=== PATIENT | male | born 1960 | race Caucasian/White ===

== ENCOUNTER 2018-06-17 12:19 | Inpatient (IN) | payer OTHER ==
[~2018-06-17] VITALS: Ht 167.6 cm; Wt 54.7 kg
--- NOTE | ~2018-06-17 | HC ---
[facility] [place] [address] CONSULTATION Name: MARY JANE NOGUERA Room #: 351-P [facility] IN M.R.#: [id number] Admission: 06/17/18 Attend Phys: Pablo Arboleda MD Discharge: Date of : 62 Report #: [id number] THIS REPORT FOR: //name// CC: [facility] physician/PCP Pablo Arboleda DATE OF SERVICE: 06/18/2018 HISTORY OF PRESENT ILLNESS: This 58-year-old white male was admitted through the Emergency Room with a 6+ month history of sore throat with hoarseness. This has ultimately led to difficulty swallowing and he states over the last 3 months, he has lost approximately 30 pounds. He was told to see his family physician when he was living in [place] after an ER visit, which he did not pursue. He recently has moved to [facility] [place]. He denies pain or other masses outside of his throat. He is a recently reformed cigarette smoker as well as alcohol drinker. ALLERGIES: None known. MEDICATIONS: Are as listed. FAMILY HISTORY: Negative for cancer of the larynx. SOCIAL HISTORY: He is currently unemployed and uninsured and living with his mother. He does continue to drink. PAST MEDICAL HISTORY: Negative prior to this current event. He "does not see physicians." REVIEW OF SYSTEMS: As in the history of present illness. His weight loss is primarily due to difficulty swallowing as opposed to lack of appetite. PHYSICAL EXAMINATION: GENERAL: Shows alert white male. He has a raspy hoarse voice. CHEST: Clear. ABDOMEN: Revealed no organomegaly or masses. CARDIOVASCULAR: Normal S1, S2. EXTREMITIES: No clubbing, cyanosis or edema. NEUROLOGIC: No focal localizing signs. PSYCHIATRIC: Not agitated or confused. LYMPHATICS: Show no palpable supraclavicular adenopathy. HOSPITAL COURSE: A CT scan was performed in the Emergency Room, which shows an [facility] [address] [place] [address] CONSULTATION Name: MARY JANE NOGUERA Room #: 351-P ADM IN R.#: [id number] Admission: 06/17/18 Attend Phys: Pablo Arboleda MD Discharge: Date of : 62 Report #: [id number] extensive right laryngeal mass with necrosis compatible with malignancy. 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 PLAN: ENT has been consulted and await biopsy for histologic confirmation and diagnosis. This appears to be an extensive lesion, but if local only, would be a consideration of radiation therapy in conjunction with systemic treatment. A CT scan of the abdomen and pelvis has been ordered with results pending in terms of staging. PET scan will also be performed if cancer diagnosis is confirmed. I have also recommended social service see him to pursue paperwork for Medicaid coverage. Thanks for allowing us to see him in consultation being allowed to participate in his care. By: [id number] Hetal Cross MD /nt
[2018-06-17 12:27] VITALS: BP 146/96
[2018-06-17 14:22] LABS: ABSOLUTE NEUTROPHILS 5.5 thou/uL (1.4-8.2); BASOPHILS 0.8 % (0.0-2.0); EOSINOPHILS 1.3 % (0.0-3.0); HEMATOCRIT 43.1 % (42.0-52.0); HEMOGLOBIN 14.8 gm/dL (14.0-18.0); LYMPHOCYTES 21.7 % (24.0-44.0); MCH 35.3 pg (26.0-34.0); MCHC 34.4 g/dL (28.0-37.0); MCV 102.6 fL (80.0-100.0); MONOCYTES 7.5 % (1.0-8.0); PLATELET COUNT 296 thou/uL (150-400); POLYS 68.7 % (36.0-66.0); RDW 13.2 % (10.5-14.5)
[2018-06-17 14:29] LABS: CALCIUM 9.7 mg/dL (8.5-10.1); CREATININE 0.8 mg/dL (0.7-1.3)
[2018-06-17 15:51] VITALS: BP 148/91
[2018-06-17 16:06] VITALS: BP 158/98
[2018-06-17 16:56] LABS: ALBUMIN 2.9 g/dL (3.4-5.0); DIRECT BILIRUBIN 0.1 mg/dL (<0.1-0.3); MAGNESIUM 1.4 mg/dL (1.8-2.4); TOTAL BILIRUBIN 0.4 mg/dL (<0.1-1.0); TOTAL PROTEIN 8.4 g/dL (6.4-8.2)
[2018-06-17 17:08] VITALS: BP 156/93
[2018-06-17 17:09] LABS: TSH 1.712 uIU/mL (0.358-3.740)
[2018-06-17 19:55] VITALS: BP 124/75
[2018-06-17 22:07] LABS: URINE BILIRUBIN NEGATIVE (Negative); URINE BLOOD NEGATIVE (Negative); URINE CLARITY CLEAR; URINE COLOR YELLOW; URINE GLUCOSE-RANDOM* 2+ (Negative); URINE KETONES NEGATIVE (Negative); URINE LEUKOCYTES-REFLEX NEGATIVE (Negative); URINE NITRITE-REFLEX NEGATIVE (Negative); URINE PROTEIN (DIPSTICK) NEGATIVE (Negative); URINE SPECIFIC GRAVITY <= 1.005 (1.005-1.035); URINE UROBILINOGEN 0.2 E.U./dl (0.2-1.0)
[2018-06-17 22:13] LABS: AMP/METHAMP Negative (Negative); BARBITURATES Negative (Negative); BENZODIAZEPINES Negative (Negative); COCAINE Negative (Negative); METHADONE Negative (Negative); OPIATES Negative (Negative); PCP Negative (Negative)
[2018-06-17 23:55] VITALS: BP 149/86
[2018-06-18 04:32] LABS: MAGNESIUM 1.8 mg/dL (1.8-2.4)
[2018-06-18 04:34] LABS: POTASSIUM 4.6 mmol/L (3.5-5.1)
[2018-06-18 04:36] LABS: CHOLESTEROL 118 mg/dL (<200); HDL CHOLESTEROL 54 mg/dL (>40); LDL CHOLESTEROL 55 mg/dL (<100); TC:HDL 2.2 Ratio (Not establshd); TRIGLYCERIDE 49 mg/dL (<150); VLDL 10 mg/dL (<40)
[2018-06-18 04:40] VITALS: BP 153/93
[2018-06-18 04:41] LABS: SERUM ASSESSMENT Clear
[2018-06-18 07:27] VITALS: BP 148/102
[2018-06-18 08:07] LABS: CALCIUM 9.2 mg/dL (8.5-10.1); CREATININE 0.7 mg/dL (0.7-1.3); POTASSIUM 4.6 mmol/L (3.5-5.1)
[2018-06-18 20:10] VITALS: BP 153/89
[2018-06-18 23:32] VITALS: BP 176/96
[2018-06-19] VITALS (9 sets, daily range): BP systolic 100–180; BP diastolic 70–108
[2018-06-19 00:10] LABS: GLYCOHEMOGLOBIN (HGB A1C) 5.8 % (4.8-5.6)
[2018-06-19 03:20] LABS: HCO3 26.6 mmol/L (22.0-26.0); PCO2 46.4 mmHg (35.0-45.0); PO2 68.6 mmHg (80.0-100.0); pH 7.377 (7.360-7.450); sO2 93.3 % (92.0-98.0)
[2018-06-19 05:29] LABS: HEMATOCRIT 40.7 % (42.0-52.0); HEMOGLOBIN 13.4 gm/dL (14.0-18.0); MCH 34.3 pg (26.0-34.0); MCV 103.8 fL (80.0-100.0); RBC 3.92 mil/uL (4.50-6.00); RDW 13.2 % (10.5-14.5); WBC 10.8 thou/uL (4.0-11.0)
[2018-06-19 05:38] LABS: CALCIUM 9.1 mg/dL (8.5-10.1); CREATININE 0.5 mg/dL (0.7-1.3); POTASSIUM 3.5 mmol/L (3.5-5.1)
--- NOTE | 2018-06-19 13:55 | HC ---
[facility] [place] [address] CONSULTATION Name: MARY JANE NOGUERA Room #: 351-P ADM IN M.R.#: [id number] Admission: 06/17/18 Attend Phys: Pablo Arboleda MD Discharge: Date of : 62 Report #: [id number] THIS REPORT FOR: //name// CC: [facility] physician/PCP Pablo Arboleda DATE OF SERVICE: 06/18/2018 REASON FOR CONSULTATION: Hoarseness. HISTORY OF PRESENT ILLNESS: The patient is a 58-year-old male who has a 2-year history of progressive hoarseness. He has been living in [place] over the last 7 years, lived in [place] previously. He has been calling family members on the phone and states that he went to try to be seen four times in [place], but was refused service because he had no insurance in the State [place]. Has family in town in [place] and 3 days ago, came from [place] back to [place], presented to the Emergency Room with increasing hoarseness. 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 I have been asked to evaluate him for his progressive hoarseness. PAST MEDICAL HISTORY: Significant for alcohol and tobacco abuse, been through DTs, probably 20 times by his admission. He is a previous smoker and has recently quit smoking. He denies any other past medical or surgical history. MEDICATIONS: None. ALLERGIES: None. REVIEW OF SYSTEMS: Significant for hoarseness. States that he does get somewhat short of breath if he walks a mile or two. PHYSICAL EXAMINATION: GENERAL: He is a well-developed male who is very hoarse. He has no dyspnea, no stridor, but does have a very weak vocal production. HEENT: Head is normocephalic, atraumatic. Pupils are equal, round and reactive. Nasal no active rhinorrhea. Oral cavity, no granulation or flushing seen. NECK: No palpable adenopathy. CT scan shows invasive neoplastic process with cartilage destruction. PLAN: He will need a direct laryngoscopy and biopsy for tissue diagnoses. Surgical options include laryngectomy, discussed this with Dr. Nicholson the [facility] [address] [address] CONSULTATION Name: MARY JANE NOGUERA Room #: 351-P ADM IN M.R.#: [id number] Admission: 06/17/18 Attend Phys: Pablo Arboleda MD Discharge: Date of : 62 Report #: [id number] nonsurgical nonlaryngectomy approach would be chemotherapy, radiation therapy combination. <ELECTRONICALLY SIGNED> By: John Christina MD 06/19/18 [id number] John Christina MD /nt
[2018-06-19 16:31] LABS: BE(vivo) 0.4 mmol/L (-2 to +3); HCO3 23.7 mmol/L (22.0-26.0); PCO2 34.2 mmHg (35.0-45.0); pH 7.458 (7.360-7.450); sO2 85.8 % (92.0-98.0)
[2018-06-19 16:33] LABS: PO2 47.4 mmHg (80.0-100.0)
[2018-06-20] VITALS (71 sets, daily range): BP systolic 79–139; BP diastolic 43–92
[2018-06-20 05:42] LABS: HEMATOCRIT 40.8 % (42.0-52.0); HEMOGLOBIN 13.6 gm/dL (14.0-18.0); MCH 33.8 pg (26.0-34.0); MCHC 33.2 g/dL (28.0-37.0); MCV 101.7 fL (80.0-100.0); RBC 4.02 mil/uL (4.50-6.00); RDW 13.1 % (10.5-14.5); WBC 11.4 thou/uL (4.0-11.0)
[2018-06-20 05:55] LABS: CALCIUM 9.3 mg/dL (8.5-10.1); CREATININE 0.8 mg/dL (0.7-1.3); POTASSIUM 3.6 mmol/L (3.5-5.1)
[2018-06-20 08:27] LABS: BE(vivo) 2.6 mmol/L (-2 to +3); HCO3 26.2 mmol/L (22.0-26.0); PCO2 37.1 mmHg (35.0-45.0); PO2 59.5 mmHg (80.0-100.0); pH 7.466 (7.360-7.450); sO2 92.3 % (92.0-98.0)
[2018-06-21] VITALS (92 sets, daily range): BP systolic 98–166; BP diastolic 28–98
[2018-06-21 05:35] LABS: HEMATOCRIT 38.6 % (42.0-52.0); HEMOGLOBIN 12.8 gm/dL (14.0-18.0); MCH 34.2 pg (26.0-34.0); MCHC 33.2 g/dL (28.0-37.0); RBC 3.75 mil/uL (4.50-6.00); RDW 13.6 % (10.5-14.5); WBC 11.1 thou/uL (4.0-11.0)
[2018-06-21 05:47] LABS: CALCIUM 8.5 mg/dL (8.5-10.1); CREATININE 0.7 mg/dL (0.7-1.3); POTASSIUM 3.5 mmol/L (3.5-5.1)
[2018-06-22] VITALS (70 sets, daily range): BP systolic 117–168; BP diastolic 65–101
[2018-06-23] VITALS (21 sets, daily range): BP systolic 132–174; BP diastolic 76–102
[2018-06-23 06:07] LABS: HEMATOCRIT 37.8 % (42.0-52.0); HEMOGLOBIN 12.4 gm/dL (14.0-18.0); MCH 33.7 pg (26.0-34.0); MCHC 32.8 g/dL (28.0-37.0); MCV 102.6 fL (80.0-100.0); RBC 3.68 mil/uL (4.50-6.00); RDW 13.7 % (10.5-14.5); WBC 11.8 thou/uL (4.0-11.0)
[2018-06-23 06:28] LABS: CALCIUM 8.7 mg/dL (8.5-10.1); CREATININE 0.5 mg/dL (0.7-1.3)
[2018-06-23 06:30] LABS: POTASSIUM 2.9 mmol/L (3.5-5.1)
[2018-06-24] VITALS (8 sets, daily range): BP systolic 152–168; BP diastolic 87–103
== END 2018-06-24 17:05 | disposition hospice, inpatient (51) | DRG 177 ==
LOC: ER 12:19 → EROBS 15:31 → 3W 15:31 → ICU 06-19 19:06
PROVIDERS: Hospitalist; Nurse Practitioner; Nurse Practitioner Family; Physician Assistant; ADMIT Internal Medicine
PROC: 5A09357 Assistance with Respiratory Ventilation, Less than 24 Consecutive Hours, Continuous Positive Airway Pressure (ICD-10-PCS; principal; 2018-06-21)
PROC: 5A09357 Assistance with Respiratory Ventilation, Less than 24 Consecutive Hours, Continuous Positive Airway Pressure (ICD-10-PCS; 2018-06-22)
PROC: 0CB Mouth and Throat, Excision (ICD-10-PCS; 2018-06-23)
DX: J69.0 Pneumonitis due to inhalation of food and vomit (principal); E43 Unspecified severe protein-calorie malnutrition; J96.21 Acute and chronic respiratory failure with hypoxia; G92 Toxic encephalopathy; Z68.1 Body mass index [BMI] 19.9 or less, adult; F10.230 Alcohol dependence with withdrawal, uncomplicated; F17.213 Nicotine dependence, cigarettes, with withdrawal; J96.12 Chronic respiratory failure with hypercapnia; R13.10 Dysphagia, unspecified; I10 Essential (primary) hypertension; Z66 Do not resuscitate; R73.9 Hyperglycemia, unspecified; J44.9 Chronic obstructive pulmonary disease, unspecified; E87.6 Hypokalemia; Z71.41 Alcohol abuse counseling and surveillance of alcoholic; Z71.6 Tobacco abuse counseling; Z91.14 Patient's other noncompliance with medication regimen; Z79.899 Other long term (current) drug therapy
CPT/HCPCS: 10078; 10879